=== PATIENT | female | born 1995 | race Caucasian/White ===

== ENCOUNTER 2021-09-26 14:05 | Emergency (ER) | payer SELFPAY | END 2021-09-26 14:50 | disposition home or self-care (01) | LOC: LB.ED 14:05 | DX: S40.861A Insect bite (nonvenomous) of right upper arm, initial encounter (principal); R03.0 Elevated blood-pressure reading, without diagnosis of hypertension; W57.XXXA Bitten or stung by nonvenomous insect and other nonvenomous arthropods, initial encounter | CPT/HCPCS: 99281 ==